=== PATIENT | female | born 1985 | race Caucasian/White ===

== ENCOUNTER 2023-12-07 04:34 | Day surgery (SDC) | payer BC ==
[2023-12-04 11:59] VITALS: BMI 20.9
[2023-12-07 09:36] VITALS: RESP 18
[2023-12-07] MEDS ORDERED: oxyCODONE HCL 5 MG TABLET PO PRN (11:04)
[2023-12-07] MEDS ORDERED: IBUPROFEN 400 MG TABLET (FP) PO PRN (11:04)
[2023-12-07] MEDS ORDERED: ACETAMINOPHEN 325 MG TABLET (FP) PO PRN (11:04)
[2023-12-07] MEDS ORDERED: FENTANYL CITRATE/PF 50 MCG/ML VIAL ONE ×2 (11:10→12:13)
[2023-12-07] MEDS ORDERED: MIDAZOLAM HCL 2 MG/2 ML SINGLE DOSE VIAL ONE (11:10)
[2023-12-07] MEDS ORDERED: PROPOFOL 20 ML ONE (11:10)
[2023-12-07] MEDS ORDERED: LACTATED RINGERS SOLUTION 1,000 ML IV SCH (12:15)
[2023-12-07] MEDS ORDERED: ONDANSETRON 4 MG/2 ML VIAL ONE (12:24)
[2023-12-07] MEDS: ONDANSETRON 4 MG/2 ML VIAL IVPUSH PRN (12:25)
[2023-12-07 14:08] VITALS: BP 105/73; PULSE 82; TEMP 97.5
== END 2023-12-07 14:10 | disposition home or self-care (01) ==
LOC: JASU-SURG 04:34
PROVIDERS: ATTEND Obstetrics & Gynecology
PROC: 0UDB8ZX Extraction of Endometrium, Via Natural or Artificial Opening Endoscopic, Diagnostic (ICD-10-PCS; principal; 2023-12-07 11:00)
DX: N92.0 Excessive and frequent menstruation with regular cycle (principal)
CPT/HCPCS: 81025; 82962; 88305-TC; 94760